=== PATIENT | male | born 2000 | race Caucasian/White ===

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

== ENCOUNTER 2021-10-07 16:57 | Emergency (ER) | payer OTHER ==
[~2021-10-07] VITALS: Ht 185.5 cm; Wt 134.7 kg
[~2021-10-07 16:57] MED LIST changes: +METF-397 PO; -METF500T5 PO; +ONDA4TAB11 PO
[2021-10-07 17:14] VITALS: BP 142/92
--- NOTE | 2021-10-07 18:06 | ED Abdominal Pain ---
General Chief Complaint: Abdominal/GI Problems Stated Complaint: ABD PAIN Nursing Triage Note: PT AMB TO ED BY POV WITH C/O UPPER ABD PAIN. PT REPORTS HE THINKS HE JUST HAS GAS. PAIN BEGAN APPROX NOON TODAY, PT TOOK GAS X AT 1400 WITH SOME RELIEF, BUT PAIN RETURNED. DENIES N/V/D, FEVER, CP, SOB, OR ANY OTHER SX. Source of Information: Patient Exam Limitations: No Limitations History of Present Illness Date Seen by Provider: Oct 07, 2021 Time Seen by Provider: 17:51 Allergies and Home Medications Allergies Coded Allergies: No Known Drug Allergies (Unverified , 02/12/13) Patient Home Medication List Ondansetron (Ondansetron Odt) 4 Mg Tab.rapdis, 4 MG PO Q6H PRN for NAUSEA/VOMITING Prescribed by: VIKTOR MALONE on 07/20/172047 Past Lqsejqx-Mumikm-Pcavoo Hx Immunizations Up To Date Tetanus Booster (TDap): Less than 5yrs PED Vaccines UTD: Yes Seasonal Allergies Seasonal Allergies: No Past Medical History Surgeries: Yes (TUBES IN EARS, PYLONIDAL CYST) Respiratory: No Cardiac: No Neurological: No Genitourinary: No Gastrointestinal: Yes Gall Bladder Disease Musculoskeletal: No Endocrine: Yes (suppose to be on metformin) Diabetes, Non-Insulin dep HEENT: No Cancer: No Psychosocial: No Integumentary: No Blood Disorders: No Adverse Reaction/Blood Tranf: No Family Medical History No Pertinent Family Hx Physical Exam Vital Signs Vital Signs - First Documented 10/07/21 17:14 Temp 36.7 Pulse 102 Resp 18 B/P (MAP) 142/92 (109) Pulse Ox 97 O2 Delivery Room Air Capillary Refill : Less Than 3 Seconds Height/Weight/BMI Height: 6'0" Weight: 250lbs. 0oz. 113.291986sj; 39.00 BMI Method:Stated Progress/Results/Core Measures Results/Orders My Orders Orders - MARIO MCKEON APRN Ekg Tracing (10/07/21 17:49) Vital Signs/I&O 10/07/21 17:14 Temp 36.7 Pulse 102 Resp 18 B/P (MAP) 142/92 (109) Pulse Ox 97 O2 Delivery Room Air Blood Pressure Mean: 109 Departure Impression Primary Impression: Gas pain Disposition: 01 HOME, SELF-CARE Condition: Improved Departure-Patient Inst. Decision time for Depature: 18:05 Referrals: NO,LOCAL PHYSICIAN (PCP/Family) Primary Care Physician Patient Instructions: Gas and Bloating Add. Discharge Instructions: Plan 1. Follow up with your doctor for additional workup with your gallbladder. 2. If you feel you are bloated or having trapped gas you can walk around to help remove. 3. May take Simethicone tablet as needed per package. 5. Return for any new, concerning, or worsening symptoms. All discharge instructions reviewed with patient and/or family. Voiced understanding. MARIO MCKEON SURVEY WORKER Oct 07, 2021 18:06
== END 2021-10-07 18:14 | disposition home or self-care (01) ==
LOC: EDUNIT# 16:57 → ER 17:00
DX: R14.0 Abdominal distension (gaseous) (principal); Z28.310 Unvaccinated for COVID-19
CPT/HCPCS: 93005

== ENCOUNTER 2021-11-03 19:52 | Emergency (ER) | payer MEDICAID, OTHER ==
[~2021-11-03] VITALS: Ht 182 cm; Wt 129.0 kg
[2021-11-03] MEDS ORDERED: morphine INJ 10 MG/ML 1ML (SYR OR VIAL) IVP STA (20:17)
[2021-11-03 20:22] LABS: BILIRUBIN,URINE NEGATIVE (NEGATIVE); CLARITY,URINE CLEAR; COLOR,URINE YELLOW; GLUCOSE, URINE (UA) NEGATIVE (NEGATIVE); KETONES,URINE TRACE (NEGATIVE); LEUKOCYTE ESTERASE ,URINE NEGATIVE (NEGATIVE); NITRITE,URINE NEGATIVE (NEGATIVE); PH,URINE 6.5 (5-9); PROTEIN,URINE NEGATIVE (NEGATIVE)
--- NOTE | 2021-11-03 20:29 | ED Abdominal Pain ---
General Chief Complaint: Abdominal/GI Problems Stated Complaint: ABD PAIN Nursing Triage Note: Patient presented to the ER tonight with complaints of abdominal pain located in the left and right upper quadrant that radiates down into the right lower quadrant. Patient state bowel movement x 1 hr ago that was normal. States bloating and pain with palpation. He advised he was seen at the ER approximately 1 week ago for a similar pain but was unable to have an ultrasound done at that time. History of Present Illness Date Seen by Provider: Nov 03, 2021 Time Seen by Provider: 20:20 Initial Comments Patient is a 21 yo M who presents to the ED with upper abdominal pain that began earlier today. He states the symptoms began after eating barbeque chicken. He states he has had two similar episodes in the past. He was evaluated in this ED for the initial symptoms. Patient denies any N/V/D. No fever. No recent abdominal trauma. No urinary symptoms. No abdominal surgeries in the past. Patient states he took some Gas-x for the symptoms with no improvement. He is on GERD medication daily. Allergies and Home Medications Allergies Coded Allergies: No Known Drug Allergies (Unverified , 02/12/13) Patient Home Medication List Home Medication List Reviewed: Yes Ketorolac Tromethamine (Ketorolac Tromethamine) 10 Mg Tablet, 10 MG PO Q6H PRN for pain Prescribed by: Mc Meneses on 11/03/212128 Ondansetron (Ondansetron Odt) 4 Mg Tab.rapdis, 4 MG PO Q6H PRN for NAUSEA/VOMITING Prescribed by: VIKTOR MALONE on 07/20/172047 Review of Systems Review of Systems Constitutional: no symptoms reported EENTM: No Symptoms Reported Respiratory: No Symptoms Reported Cardiovascular: No Symptoms Reported Gastrointestinal: No Symptoms Reported Genitourinary: No Symptoms Reported Musculoskeletal: no symptoms reported Skin: no symptoms reported Psychiatric/Neurological: No Symptoms Reported Past Qcznpos-Cguejd-Fiiymw Hx Immunizations Up To Date Tetanus Booster (TDap): Less than 5yrs PED Vaccines UTD: Yes First/Initial COVID19 Vaccinat: N/A Seasonal Allergies Seasonal Allergies: No Past Medical History Surgery/Hospitalization HX: ACID REFLUX Surgeries: Yes (TUBES IN EARS, PYLONIDAL CYST) Respiratory: No Cardiac: No Neurological: No Genitourinary: No Gastrointestinal: Yes Gall Bladder Disease Musculoskeletal: No Endocrine: Yes (suppose to be on metformin) Diabetes, Non-Insulin dep HEENT: No Cancer: No Psychosocial: No Integumentary: No Blood Disorders: No Adverse Reaction/Blood Tranf: No Family Medical History No Pertinent Family Hx Physical Exam Vital Signs Vital Signs - First Documented 11/03/21 20:10 Pulse 108 Resp 18 B/P (MAP) 142/73 (96) Pulse Ox 98 O2 Delivery Room Air Capillary Refill : Less Than 3 Seconds Height/Weight/BMI Height: 6'0" Weight: 250lbs. 0oz. 113.839193dq; 38.00 BMI Method:Stated General Appearance: WD/WN, no apparent distress HEENT: PERRL/EOMI, normal ENT inspection, TMs normal, pharynx normal Neck: non-tender, full range of motion, supple, normal inspection Respiratory: chest non-tender, lungs clear, normal breath sounds, no respiratory distress, no accessory muscle use Cardiovascular: normal peripheral pulses, regular rate, rhythm, no edema, no gallop, no JVD, no murmur Gastrointestinal: normal bowel sounds, soft, no organomegaly, no pulsatile mass; No abnormal bowel sounds, No distended, No guarding, No rebound; tenderness Extremities: normal range of motion, non-tender, normal inspection, no pedal edema, no calf tenderness, normal capillary refill 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, no motor/sensory deficits, alert, normal mood/affect, oriented x 3 Skin: normal color, warm/dry Progress/Results/Core Measures Results/Orders Lab Results Laboratory Tests Test 11/03/21 20:16 11/03/21 20:31 Range/Units Urine Color YELLOW Urine Clarity CLEAR Urine pH 6.5 5-9 Urine Specific [place] 1.025 H 1.016-1.022 Urine Protein NEGATIVE NEGATIVE Urine Glucose (UA) NEGATIVE NEGATIVE Urine Ketones TRACE H NEGATIVE Urine Nitrite NEGATIVE NEGATIVE Urine Bilirubin NEGATIVE NEGATIVE Urine Urobilinogen 0.2 < = 1.0 MG/DL Urine Leukocyte Esterase NEGATIVE NEGATIVE Urine RBC (Auto) TRACE-I H NEGATIVE Urine RBC RARE /HPF Urine WBC NONE /HPF Urine Crystals NONE /LPF Urine Bacteria NEGATIVE /HPF Urine Casts NONE /LPF Urine Mucus NEGATIVE /LPF Urine Culture Indicated NO White Blood Count 14.4 H 4.3-11.0 10^3/uL Red Blood Count 4.73 4.30-5.52 10^6/uL Hemoglobin 14.6 13.3-17.7 g/dL Hematocrit 43 40-54 % Mean Corpuscular Volume 90 80-99 fL Mean Corpuscular Hemoglobin 31 25-34 pg Mean Corpuscular Hemoglobin Concent 34 32-36 g/dL Red Cell Distribution Width 12.4 10.0-14.5 % Platelet Count 301 130-400 10^3/uL Mean Platelet Volume 9.2 9.0-12.2 fL Immature Granulocyte % (Auto) 0 % Neutrophils (%) (Auto) 65 42-75 % Lymphocytes (%) (Auto) 30 12-44 % Monocytes (%) (Auto) 5 0-12 % Eosinophils (%) (Auto) 0 0-10 % Basophils (%) (Auto) 0 0-10 % Neutrophils # (Auto) 9.3 H 1.8-7.8 10^3/uL Lymphocytes # (Auto) 4.3 H 1.0-4.0 10^3/uL Monocytes # (Auto) 0.7 0.0-1.0 10^3/uL Eosinophils # (Auto) 0.0 0.0-0.3 10^3/uL Basophils # (Auto) 0.0 0.0-0.1 10^3/uL Immature Granulocyte # (Auto) 0.0 0.0-0.1 10^3/uL Neutrophils % (Manual) 66 % Lymphocytes % (Manual) 28 % Monocytes % (Manual) 6 % Blood Morphology Comment NORMAL Sodium Level 141 135-145 MMOL/L Potassium Level 3.8 3.6-5.0 MMOL/L Chloride Level 104 98-107 MMOL/L Carbon Dioxide Level 24 21-32 MMOL/L Anion Gap 13 5-14 MMOL/L Blood Urea Nitrogen 12 7-18 MG/DL Creatinine 1.07 0.60-1.30 MG/DL Estimat Glomerular Filtration Rate 101 BUN/Creatinine Ratio 11 Glucose Level 92 70-105 MG/DL Calcium Level 9.8 8.5-10.1 MG/DL Corrected Calcium 9.4 8.5-10.1 MG/DL Total Bilirubin 0.5 0.1-1.0 MG/DL Aspartate Amino Transf (AST/SGOT) 33 5-34 U/L Alanine Aminotransferase (ALT/SGPT) 72 H 0-55 U/L Alkaline Phosphatase 78 40-136 U/L Total Protein 8.2 6.4-8.2 GM/DL Albumin 4.5 3.2-4.5 GM/DL Lipase 17 8-78 U/L My Orders Orders - MC MENESES RAIL SIGNAL WORKER Cbc With Automated Diff (11/03/21 20:12) Comprehensive Metabolic Panel (11/03/21 20:12) Lipase (11/03/21 20:12) Ed Iv/Invasive Line Start (11/03/21 20:12) Urinalysis (11/03/21 20:12) Ct Abdomen/Pelvis W (11/03/21 20:15) Morphine Injection (Morphine Injection (11/03/21 20:17) Iohexol Injection (Omnipaque 350 Mg/Ml 1 (11/03/21 20:30) Received Contrast (Hold Metformin- Contr (11/03/21 20:30) Ns (Ivpb) (Sodium Chloride 0.9% Ivpb Bag (11/03/21 20:30) Manual Differential (11/03/21 20:31) Ketorolac Injection (Toradol Injection) (11/03/21 21:30) Medications Given in ED Current Medications Medications Dose Ordered Sig/Conrad Route Start Time Stop Time Status Last Admin Dose Admin Iohexol 100 ml ONCE ONCE IV 11/03/21 20:30 11/03/21 20:31 DC 11/03/21 21:00 100 ML Ketorolac Tromethamine 15 mg ONCE ONCE IVP 11/03/21 21:30 11/03/21 21:31 DC 11/03/21 21:51 15 MG Sodium Chloride 100 ml ONCE ONCE IV 11/03/21 20:30 11/03/21 20:31 DC 11/03/21 21:00 80 ML Vital Signs/I&O 11/03/21 11/03/21 20:10 21:52 Pulse 108 85 Resp 18 B/P (MAP) 142/73 (96) 138/77 Pulse Ox 98 97 O2 Delivery Room Air Blood Pressure Mean: 96 Progress Progress Note : Progress Note Patient is nontoxic and well hydrated on exam. Vital signs are reassuring. Exam is c/w biliary colic as there is RUQ TTP. Abdomen is not rigid or distended. Laboratory evaluation is reassuring. No elevated in LFTs, bilirubin, or lipase on metabolic panels. CBC unremarkable. CT of the abd/pelvis notable for gallbladder distention and cholelithiasis. No evidence of acute cholecystitis, choledocholithiasis, or cholangitis. Will d/c home with recs for supportive care and follow-up with general surgery in the near future. Return precautions for urgent symptomology discussed. Patient verbalized understanding. Departure Impression Primary Impression: Biliary colic Disposition: HOME, SELF-CARE Condition: Improved Departure-Patient Inst. Decision time for Depature: 21:25 [place]: [facility] [place] Primary Care Physician Patient Instructions: Gallstones ED Scripts Ketorolac Tromethamine (Ketorolac Tromethamine) 10 Mg Tablet 10 MG PO Q6H PRN for pain for 5 Days, #15 TAB Prov: MC MENESES APRN 11/03/21 MC MENESES APRN Nov 03, 2021 20:29
[2021-11-03] MEDS ORDERED: NS 100 ML (IVPB) BAG IV ONE (20:30)
[2021-11-03] MEDS ORDERED: IOHEXOL 350 MG/ML 100 ML (OMNIPAQUE 350) VIAL IV ONE (20:30)
[2021-11-03] MEDS ORDERED: HOLD METFORMIN - RECEIVED CONTRAST 20 ML VIAL IV SCH (20:30)
[2021-11-03 20:31] LABS: BACTERIA,URINE NEGATIVE /HPF; RBC,URINE RARE /HPF
[2021-11-03 20:37] LABS: BASOPHILS % (AUTO) 0 % (0-10); EOSINOPHILS % (AUTO) 0 % (0-10); HEMATOCRIT 43 % (40-54); HEMOGLOBIN 14.6 g/dL (13.3-17.7); LYMPHOCYTES # (AUTO) 4.3 10^3/uL (1.0-4.0); LYMPHOCYTES % (AUTO) 30 % (12-44); MEAN CORPUSCULAR HEMOGLOBIN 31 pg (25-34); MEAN CORPUSCULAR HGB CONC 34 g/dL (32-36); MEAN CORPUSCULAR VOLUME 90 fL (80-99); MEAN PLATELET VOLUME 9.2 fL (9.0-12.2); MONOCYTES # (AUTO) 0.7 10^3/uL (0.0-1.0); MONOCYTES % (AUTO) 5 % (0-12); NEUTROPHILS # (AUTO) 9.3 10^3/uL (1.8-7.8); NEUTROPHILS % (AUTO) 65 % (42-75); PLATELET COUNT 301 10^3/uL (130-400); WHITE BLOOD COUNT 14.4 10^3/uL (4.3-11.0)
[2021-11-03 20:45] LABS: ALBUMIN 4.5 GM/DL (3.2-4.5); POTASSIUM 3.8 MMOL/L (3.6-5.0)
[2021-11-03 20:46] LABS: CALCIUM 9.8 MG/DL (8.5-10.1)
[2021-11-03 20:48] LABS: TOTAL PROTEIN 8.2 GM/DL (6.4-8.2)
[2021-11-03 20:49] LABS: BILIRUBIN,TOTAL 0.5 MG/DL (0.1-1.0)
[2021-11-03 20:51] LABS: CREATININE SERUM 1.07 MG/DL (0.60-1.30); LYMPHOCYTES % (MANUAL) 28 %; MONOCYTES % (MANUAL) 6 %; NEUTROPHILS % (MANUAL) 66 %; RBC MORPH NORMAL
--- NOTE | 2021-11-03 21:05 | Diagnostic Imaging Report ---
EXAMINATION: CT abdomen and pelvis with intravenous contrast. TECHNIQUE: Multiple contiguous axial images were obtained through the abdomen and pelvis after the uneventful administration of intravenous contrast. All CT scans use one or more of the following dose optimizing techniques: automated exposure control, MA and/or KvP adjustment based on patient size and exam type or iterative reconstruction. HISTORY: Upper abdominal pain. COMPARISON: 04/11/2017. FINDINGS: The heart is unremarkable. The included lung bases are clear. Cholelithiasis is visualized in a mildly distended gallbladder. Bilateral nonobstructing renal calculi are seen. No obstructing calculi or hydronephrosis. No perinephric fat stranding. No solid renal mass. The urinary bladder is unremarkable. The liver, spleen, pancreas and adrenal glands have a normal appearance. There is no pathologically enlarged mesenteric or retroperitoneal adenopathy. The bowel loops are nondilated. The appendix is visualized in the right lower quadrant and has a normal appearance. There is no free fluid or free air. No acute osseous abnormality. There is no free air, loculated collection or adenopathy in the pelvis. IMPRESSION: 1. Cholelithiasis with a moderately distended gallbladder. Recommend correlation with patient symptoms and, if indicated, liver/gallbladder ultrasound to further evaluate. 2. Bilateral nonobstructing renal calculi. No evidence of obstructing calculi or hydronephrosis. Dictated by: Dictated on workstation # [id number]
[2021-11-03] MEDS ORDERED: KETO10TA PO (21:29)
[2021-11-03] MEDS ORDERED: KETOROLAC 30 MG/ML VIAL IVP ONE (21:30)
[2021-11-03 21:52] VITALS: BP 138/77
== END 2021-11-03 21:57 | disposition home or self-care (01) ==
LOC: EDUNIT# 19:52 → ER 19:55
DX: K80.50 Calculus of bile duct without cholangitis or cholecystitis without obstruction (principal); K21.9 Gastro-esophageal reflux disease without esophagitis; Z79.899 Other long term (current) drug therapy; Z28.310 Unvaccinated for COVID-19
CPT/HCPCS: 36415; 74177; 80053; 81000; 83690; 85007; 85027

== ENCOUNTER 2021-11-15 05:30 | Outpatient (CLI) | payer MEDICAID ==
[~2021-11-15] VITALS: Ht 182.8 cm; Wt 129.3 kg
[~2021-11-15 05:30] MED LIST changes: +KETO10TA PO
== END 2021-11-15 14:35 | disposition home or self-care (01) ==
LOC: PREOP 05:30
PROVIDERS: ATTEND Surgery
DX: Z01.818 Encounter for other preprocedural examination (principal)

== ENCOUNTER 2021-11-21 00:21 | Emergency (ER) | payer MEDICAID ==
[2021-11-21 00:49] LABS: BILIRUBIN,URINE NEGATIVE (NEGATIVE); CLARITY,URINE SL CLOUDY; COLOR,URINE BROWN; GLUCOSE, URINE (UA) NEGATIVE (NEGATIVE); KETONES,URINE TRACE (NEGATIVE); LEUKOCYTE ESTERASE ,URINE TRACE (NEGATIVE); NITRITE,URINE POSITIVE (NEGATIVE); PROTEIN,URINE 2+ (NEGATIVE)
[2021-11-21] MEDS ORDERED: KETOROLAC 30 MG/ML VIAL IVP STA (00:50)
[2021-11-21 00:59] LABS: BASOPHILS % (AUTO) 0 % (0-10); EOSINOPHILS # (AUTO) 0.1 10^3/uL (0.0-0.3); EOSINOPHILS % (AUTO) 1 % (0-10); HEMATOCRIT 45 % (40-54); LYMPHOCYTES # (AUTO) 4.2 10^3/uL (1.0-4.0); LYMPHOCYTES % (AUTO) 35 % (12-44); MEAN CORPUSCULAR HEMOGLOBIN 31 pg (25-34); MEAN CORPUSCULAR HGB CONC 34 g/dL (32-36); MEAN CORPUSCULAR VOLUME 91 fL (80-99); MEAN PLATELET VOLUME 9.6 fL (9.0-12.2); MONOCYTES # (AUTO) 0.7 10^3/uL (0.0-1.0); MONOCYTES % (AUTO) 6 % (0-12); NEUTROPHILS # (AUTO) 6.9 10^3/uL (1.8-7.8); NEUTROPHILS % (AUTO) 58 % (42-75); PLATELET COUNT 323 10^3/uL (130-400); WHITE BLOOD COUNT 11.8 10^3/uL (4.3-11.0)
[2021-11-21] MEDS ORDERED: LACTATED RINGERS 1,000 ML IV ONE (01:00)
[2021-11-21 01:09] LABS: AMPHETAMINE SCREEN, URINE NEGATIVE (NEGATIVE); BARBITURATE SCREEN URINE NEGATIVE (NEGATIVE); BENZODIAZEPINES SCREEN URINE NEGATIVE (NEGATIVE); CANNABINOID SCREEN, URINE NEGATIVE (NEGATIVE); COCAINE SCREEN URINE NEGATIVE (NEGATIVE); METHADONE STAT NEGATIVE (NEGATIVE); OPIATE SCREEN URINE NEGATIVE (NEGATIVE); OXYCODONE STAT NEGATIVE (NEGATIVE); PROPOXYPHENE STAT NEGATIVE (NEGATIVE); TRICYCLIC ANTIDEPRESSANTS SCRE NEGATIVE (NEGATIVE)
[2021-11-21 01:10] LABS: BACTERIA,URINE LARGE /HPF; CALCIUM OXALATE CRYSTALS,UR LARGE /LPF; RBC,URINE TNTC /HPF
[2021-11-21 01:14] LABS: ALBUMIN 4.5 GM/DL (3.2-4.5); POTASSIUM 3.5 MMOL/L (3.6-5.0)
[2021-11-21 01:15] LABS: CALCIUM 9.7 MG/DL (8.5-10.1)
[2021-11-21 01:17] LABS: TOTAL PROTEIN 8.2 GM/DL (6.4-8.2)
[2021-11-21 01:18] LABS: BILIRUBIN,TOTAL 0.4 MG/DL (0.1-1.0)
[2021-11-21] MEDS ORDERED: cefTRIAXone 1 GM PRE-MIX 50 ML IV ONE (01:30)
--- NOTE | 2021-11-21 01:40 | ED GU-Male ---
General Chief Complaint: - Reproductive Stated Complaint: SHARP BACK PAIN RT SIDE Nursing Triage Note: PT AMB TO [facility] 6 WITH C/O SHARP BACK PAIN ON THE RIGHT SIDE. PT STATES IT WOKE HIM UP FROM SLEEP. PT DENIES HX OF KIDNEY STONES AND DENIES TAKING ANYTHING FOR PAIN Source: patient History of Present Illness Date Seen by Provider: Nov 21, 2021 Time Seen by Provider: 00:43 Initial Comments PT ARRIVES VIA POV FROM HOME PT STATES THAT ABOUT AN HOUR AGO, HE GOT UP TO URINATE, AND SHORTLY AFTER THAT, HE BEGAN HAVING SHARP SEVERE PAIN IN HIS RIGHT LOWER BACK/FLANK AREA NO PAIN ON URINATION, BUT HAS BEEN HAVING SOME URGENCY, FREQUENCY AND SMALL AMOUNTS FOR THE LAST HOUR JUST PRIOR TO ARRIVAL, HE HAD BLOOD IN HIS URINE, SO HE CAME HERE NO FEVER NO NAUSEA/VOMITING HE STATES THAT FOR THE LAST COUPLE OF DAYS HE HAS HAD SOME "LITTLE 5 SECOND PAINS" IN THIS SAME AREA PT HAS NOT TAKEN ANYTHING FOR PAIN PT WAS RECENTLY DX WITH GALLSTONES AND IS SCHEDULED TO HAVE HIS GALLBLADDER REMOVED TOMORROW BY DR. BRYAN. Allergies and Home Medications Allergies Coded Allergies: No Known Drug Allergies (Unverified , 11/15/21) Patient Home Medication List Home Medication List Reviewed: Yes Ciprofloxacin HCl (Ciprofloxacin HCl) 500 Mg Tablet, 500 MG PO BID Prescribed by: NAVYA CORONA on 11/21/21245 Hydrocodone/Acetaminophen (Hydrocodone-Acetamin 5-325 mg) 5 Mg-325 Mg Tablet, 1 EACH PO Q4-6 HOURS PRN for PAIN Prescribed by: NAVYA CORONA on 11/21/21246 Ketorolac Tromethamine (Ketorolac Tromethamine) 10 Mg Tablet, 10 MG PO Q6H PRN for pain Prescribed by: Mc Meneses on 11/03/212128 Ondansetron (Ondansetron Odt) 4 Mg Tab.rapdis, 4 MG PO Q6H PRN for NAUSE A/VOMITING Prescribed by: VIKTOR MALONE on 07/20/172047 Ondansetron (Ondansetron Odt) 8 Mg Tab.rapdis, 8 MG PO Q6H Prescribed by: NAVYA CORONA on 11/21/21245 Tamsulosin HCl (Flomax) 0.4 Mg Cap, 0.4 MG PO DAILY Prescribed by: NAVYA CORONA on 11/21/21245 Review of Systems Review of Systems Constitutional: no symptoms reported Respiratory: no symptoms reported Cardiovascular: no symptoms reported Gastrointestinal: see HPI Genitourinary: see HPI Musculoskeletal: see HPI Skin: no symptoms reported Psychiatric/Neurological: No Symptoms Reported Endocrine: No Symptoms Reported Hematologic/Lymphatic: No Symptoms Reported Past Ekqilzw-Xsofml-Eijdgj Hx Patient Social History Tobacco Use?: No Substance use?: No Alcohol Use?: Yes Alcohol Frequency: Rarely Pt feels they are or have been: No Immunizations Up To Date Tetanus Booster (TDap): Less than 5yrs PED Vaccines UTD: Yes Influenza Vaccine Up-to-Date: No; Not Current First/Initial COVID19 Vaccinat: N/A Second COVID19 Vaccination Matt: N/A Third COVID19 Vaccination Date: N/A Seasonal Allergies Seasonal Allergies: Yes Past Medical History Surgery/Hospitalization HX: ACID REFLUX Surgeries: Yes (TUBES IN EARS, PILONIDAL CYST) Ear Surgery Respiratory: No Cardiac: No Neurological: No Genitourinary: No Gastrointestinal: Yes Gall Bladder Disease Musculoskeletal: No Endocrine: Yes (suppose to be on metformin PRE-GETS TOO LOW) Diabetes, Non-Insulin dep HEENT: No Cancer: No Psychosocial: Yes Anxiety Integumentary: No Blood Disorders: No Adverse Reaction/Blood Tranf: No Family Medical History No Pertinent Family Hx Physical Exam Vital Signs Vital Signs - First Documented 11/21/21 00:30 Temp 36.4 Pulse 88 Resp 16 B/P (MAP) 151/92 (111) Capillary Refill : Height, Weight, BMI Height: 6'0" Weight: 250lbs. 0oz. [id number]; 38.69 BMI Method:Stated General Appearance: WD/WN, no apparent distress Neck: normal inspection Cardiovascular: regular rate, rhythm Respiratory: normal breath sounds Gastrointestinal: soft; No distended, No guarding, No rebound; tenderness (SUPRAPUBIC, RLQ AND RIGHT FLANK TENDERNESS. ); No hernia, No mass Back: CVA tenderness (R) Extremities: normal inspection Neurologic/Psychiatric: delivery rn II-XII nml as tested, no motor/sensory deficits, alert, normal mood/affect, oriented x 3 Skin: normal color, warm/dry; No rash; tattoos/piercings Progress/Results/Core Measures Suspected Sepsis SIRS Temperature: Pulse: 88 Respiratory Rate: 16 Laboratory Tests 11/21/21 00:45: White Blood Count 11.8H Blood Pressure 151 /92 Mean: 111 Laboratory Tests 11/21/21 00:45: Creatinine 1.00, Platelet Count 323, Total Bilirubin 0.4 Results/Orders Lab Results Laboratory Tests Test 11/21/21 00:33 11/21/21 00:45 Range/Units Urine Color BROWN H Urine Clarity SL CLOUDY Urine pH 5.0 5-9 Urine Specific [place] >=1.030 1.016-1.022 Urine Protein 2+ H NEGATIVE Urine Glucose (UA) NEGATIVE NEGATIVE Urine Ketones TRACE H NEGATIVE Urine Nitrite POSITIVE H NEGATIVE Urine Bilirubin NEGATIVE NEGATIVE Urine Urobilinogen 1.0 < = 1.0 MG/DL Urine Leukocyte Esterase TRACE H NEGATIVE Urine RBC (Auto) 3+ H NEGATIVE Urine RBC TNTC H /HPF Urine WBC 10-25 H /HPF Urine Crystals PRESENT H /LPF Urine Calcium Oxalate Crystals LARGE H /LPF Urine Bacteria LARGE H /HPF Urine Casts NONE /LPF Urine Mucus LARGE H /LPF Urine Culture Indicated YES Urine Opiates Screen NEGATIVE NEGATIVE Urine Oxycodone Screen NEGATIVE NEGATIVE Urine Methadone Screen NEGATIVE NEGATIVE Urine Propoxyphene Screen NEGATIVE NEGATIVE Urine Barbiturates Screen NEGATIVE NEGATIVE Ur Tricyclic Antidepressants Screen NEGATIVE NEGATIVE Urine Phencyclidine Screen NEGATIVE NEGATIVE Urine Amphetamines Screen NEGATIVE NEGATIVE Urine Methamphetamines Screen NEGATIVE NEGATIVE Urine Benzodiazepines Screen NEGATIVE NEGATIVE Urine Cocaine Screen NEGATIVE NEGATIVE Urine Cannabinoids Screen NEGATIVE NEGATIVE White Blood Count 11.8 H 4.3-11.0 10^3/uL Red Blood Count 4.89 4.30-5.52 10^6/uL Hemoglobin 15.0 13.3-17.7 g/dL Hematocrit 45 40-54 % Mean Corpuscular Volume 91 80-99 fL Mean Corpuscular Hemoglobin 31 25-34 pg Mean Corpuscular Hemoglobin Concent 34 32-36 g/dL Red Cell Distribution Width 12.3 10.0-14.5 % Platelet Count 323 130-400 10^3/uL Mean Platelet Volume 9.6 9.0-12.2 fL Immature Granulocyte % (Auto) 0 % Neutrophils (%) (Auto) 58 42-75 % Lymphocytes (%) (Auto) 35 12-44 % Monocytes (%) (Auto) 6 0-12 % Eosinophils (%) (Auto) 1 0-10 % Basophils (%) (Auto) 0 0-10 % Neutrophils # (Auto) 6.9 1.8-7.8 10^3/uL Lymphocytes # (Auto) 4.2 H 1.0-4.0 10^3/uL Monocytes # (Auto) 0.7 0.0-1.0 10^3/uL Eosinophils # (Auto) 0.1 0.0-0.3 10^3/uL Basophils # (Auto) 0.0 0.0-0.1 10^3/uL Immature Granulocyte # (Auto) 0.0 0.0-0.1 10^3/uL Sodium Level 140 135-145 MMOL/L Potassium Level 3.5 L 3.6-5.0 MMOL/L Chloride Level 103 98-107 MMOL/L Carbon Dioxide Level 26 21-32 MMOL/L Anion Gap 11 5-14 MMOL/L Blood Urea Nitrogen 11 7-18 MG/DL Creatinine 1.00 0.60-1.30 MG/DL Estimat Glomerular Filtration Rate 109 BUN/Creatinine Ratio 11 Glucose Level 127 H 70-105 MG/DL Calcium Level 9.7 8.5-10.1 MG/DL Corrected Calcium 9.3 8.5-10.1 MG/DL Total Bilirubin 0.4 0.1-1.0 MG/DL Aspartate Amino Transf (AST/SGOT) 26 5-34 U/L Alanine Aminotransferase (ALT/SGPT) 57 H 0-55 U/L Alkaline Phosphatase 89 40-136 U/L Total Protein 8.2 6.4-8.2 GM/DL Albumin 4.5 3.2-4.5 GM/DL Amylase Level 28 25-125 U/L Lipase 22 8-78 U/L My Orders Orders - NAVYA CORONA DO Drug Screen Stat (Urine) (11/21/21 00:43) Ua Culture If Indicated (11/21/21 00:43) Ed Iv/Invasive Line Start (11/21/21 00:50) Ct Abd/Pelvis Wo(Kidney Stone) (11/21/21 00:50) Amylase (11/21/21 00:50) Cbc With Automated Diff (11/21/21 00:50) Comprehensive Metabolic Panel (11/21/21 00:50) Lipase (11/21/21 00:50) Abdomen/Kub 1view (11/21/21 00:50) Ed Iv/Invasive Line Start (11/21/21 00:50) Lactated Ringers (Lr 1000 Ml Iv Solution (11/21/21 01:00) Ketorolac Injection (Toradol Injection) (11/21/21 00:50) Urine Culture (11/21/21 00:33) Ceftriaxone 1 Gm Pre-Mix (Rocephin 1 Gm (11/21/21 01:30) Rx-Hydrocodone/Apap 5-325 Mg (Rx-Vicodin (11/21/21 03:00) Rx-Ondansetron Po (Rx-Zofran Po) (11/21/21 02:47) Tamsulosin Capsule (Flomax Capsule) (11/21/21 03:00) Medications Given in ED Current Medications Medications Dose Ordered Sig/Conrad Route Start Time Stop Time Status Last Admin Dose Admin Ceftriaxone Sodium/Dextrose 50 ml @ 100 mls/hr ONCE ONCE IV 11/21/21 01:30 11/21/21 01:59 DC 11/21/21 02:11 100 MLS/HR Lactated Ringer's 1,000 ml @ 0 mls/hr Q0M ONCE IV 11/21/21 01:00 11/21/21 01:01 DC 11/21/21 00:56 1,000 MLS/HR Vital Signs/I&O 11/21/21 00:30 Temp 36.4 Pulse 88 Resp 16 B/P (MAP) 151/92 (111) Capillary Refill : Blood Pressure Mean: 111 Progress Note : Progress Note GIVEN TORADOL WITH COMPLETE RELIEF OF PAIN Diagnostic Imaging Comments KUB--CALCIFICATION IN RIGHT MID ABDOMEN, PENDING RADIOLOGIST REVIEW CT ABDOMEN/PELVIS--PER [facility] VIA FAX AT 0233 -3.8 MM RIGHT PROXIMAL URETERAL CALCULUS WITH MILD HYDRONEPHROSIS -CHOLELITHIASIS WITHOUT ACUTE CHOLECYSTITIS. Reviewed: Reviewed by Me Departure Communication (Admissions) 0233--SPOKE WITH DR. BRYAN, SURGEON, HE ADVISES TO SEND PT HOME, CONTINUE WITH SURGERY TOMORROW PLANNED AND FOLLOW UP WITH DR. AVILA OUTPATIENT NEXT WEEK, HE IS OUT OF TOWN THIS WEEK. Impression Primary Impression: Right ureteral calculus Additional Impressions: UTI (urinary tract infection) Cholelithiasis Disposition: HOME, SELF-CARE Condition: Improved Departure-Patient Inst. Decision time for Depature: 02:35 Referrals: [facility] (PCP/Family) Primary Care Physician Patient Instructions: Urinary Tract Infection, Adult (DC), Kidney Stone, Adult ED, Gallstones (DC) Add. Discharge Instructions: LOTS OF CLEAR LIQUIDS STRAIN ALL URINE--RETURN ANY STONES TO DR. AVILA'S OFFICE CONTINUE YOUR CURRENT MEDICATIONS PRESCRIBED CONTINUE PLANNED SURGERY FOR GALLBLADDER REMOVAL TOMORROW WITH DR. BRYAN FOLLOW UP WITH DR. AVILA, UROLOGIST, FOR FURTHER EVALUATION OF KIDNEY STONE RETURN TO ER IF SYMPTOMS WORSEN All discharge instructions reviewed with patient and/or family. Voiced understanding. Scripts Hydrocodone/Acetaminophen (Hydrocodone-Acetamin 5-325 mg) 5 Mg-325 Mg Tablet 1 EACH PO Q4-6 HOURS PRN for PAIN, #20 TAB Prov: NAVYA CORONA DO 11/21/21 Ondansetron (Ondansetron Odt) 8 Mg Tab.rapdis 8 MG PO Q6H, #10 TAB Prov: NAVYA COROAN DO 11/21/21 Tamsulosin HCl (Flomax) 0.4 Mg Cap 0.4 MG PO DAILY, #10 CAP Prov: NAVYA CORONA DO 11/21/21 Ciprofloxacin HCl (Ciprofloxacin HCl) 500 Mg Tablet 500 MG PO BID, #14 TAB Prov: NAVYA CORONA DO 11/21/21 Work/School Note: Work Release Form Date Seen in the Emergency Department: Nov 21, 2021 Restrictions: Need Release from Doctor NAVYA CORONA DO Nov 21, 2021 01:40
[2021-11-21] MEDS ORDERED: TMSL.4C PO (02:46)
[2021-11-21] MEDS ORDERED: CIPR500T5 PO (02:46)
[2021-11-21] MEDS ORDERED: ONDA8TAB13 PO (02:46)
[2021-11-21] MEDS ORDERED: ACHD5005 PO (02:46)
[2021-11-21] MEDS ORDERED: RX-ONDANSETRON 4 MG ODT (ZOFRAN) PPK #4 PO STA (02:47)
[2021-11-21] MEDS ORDERED: TAMSULOSIN 0.4 MG (FLOMAX) CAP PO SCH (03:00)
[2021-11-21 03:24] VITALS: BP 132/78
--- NOTE | 2021-11-21 06:40 | Diagnostic Imaging Report ---
Indication: Right flank pain. TECHNIQUE: Multiple contiguous axial images were obtained through the abdomen and pelvis without the use of intravenous contrast. Auto Exposure Controls were utilized during the CT exam to meet ALARA standards for radiation dose reduction. COMPARISON: 11/03/2021 Visualized portions of the lung bases are clear. There were no pleural fluid collections. There is no free intraperitoneal air. The liver shows low-density change compatible with fatty infiltration without focal lesion. Gallbladder is contracted and contains multiple stones. Spleen, adrenals, and pancreas are normal. The left kidney shows a small nonocclusive stone in the midpole. There is no left hydronephrosis. Right kidney shows a nonocclusive stone in the midpole calyceal region. There is mild right hydronephrosis. There is a stone just beyond the right UPJ measuring about 4 mm. No stones are seen beyond this point. There is no retroperitoneal mass or adenopathy. There is no ascites or abnormal fluid collection. Visualized bowel loops including the appendix appear unremarkable. There is no pelvic mass or free fluid. IMPRESSION: There is mild right hydronephrosis secondary to a 4 mm stone in the right proximal ureter near the UPJ. Additional 4 mm intrarenal stone is seen in the mid to lower pole of the right kidney. Tiny nonocclusive stone in the left kidney. There is fatty infiltration of the liver. The gallbladder is contracted and contains multiple stones. Dictated by: Dictated on workstation # [id number]
--- NOTE | 2021-11-21 07:15 | Diagnostic Imaging Report ---
Indication: Abdominal pain. Comparison with CT scan from 09/21/2021. FINDINGS: Stomach and small bowel are not distended. There is normal stool and gas pattern throughout colon. There is no evidence of impacted stool or large stool burden. There is no organomegaly. There is calcification again noted in the proximal right ureter at the UPJ. No organomegaly. IMPRESSION: The proximal right ureteral calculus measuring approximately 4 mm appears unchanged in position when compared with previous CT scan. Dictated by: Dictated on workstation # [id number]
== END 2021-11-21 03:25 | disposition home or self-care (01) ==
LOC: EDUNIT# 00:21 → ER 00:25
DX: N13.2 Hydronephrosis with renal and ureteral calculous obstruction (principal); N39.0 Urinary tract infection, site not specified; K80.20 Calculus of gallbladder without cholecystitis without obstruction; Z28.310 Unvaccinated for COVID-19
CPT/HCPCS: 36415; 74018; 74176; 80053; 80306; 81000; 82150; 83690; 85025; 87088

== ENCOUNTER 2021-11-22 09:45 | Emergency (ER) | payer MEDICAID ==
[~2021-11-22] VITALS: Ht 182 cm; Wt 129.0 kg
--- NOTE | 2021-11-22 10:13 | ED Abdominal Pain ---
General Chief Complaint: Abdominal/GI Problems Stated Complaint: RIGHT SIDE FLANK PAIN Nursing Triage Note: RIGHT SIDED FLANK PAIN. DX WITH A KIDNEY STONE TWO DAYS AGO. WAS SCHEDULED TO HAVE HIS GALLBLADDER REMOVED TODAY BY RANDI BUT CANCELLED THAT BECAUSE OF THE PAIN. Source of Information: Patient Exam Limitations: No Limitations History of Present Illness Date Seen by Provider: Nov 22, 2021 Time Seen by Provider: 09:57 Initial Comments 21-year-old male presents the emergency department today for right flank pain. Symptoms started 2-1/2 days ago. He was seen here at the onset of his symptoms and diagnosed with a 3 mm kidney stone. He was scheduled to have gallbladder surgery today, presented and had significant pain in his right flank which has been persistent. They canceled the surgery and advised to come here. No fevers or chills. He has nausea and feels like he might vomit currently. No dysuria. He has been straining his urine without any passed stones thus far. Allergies and Home Medications Allergies Coded Allergies: orange (Verified Allergy, Unknown, 11/22/21) Patient Home Medication List Home Medication List Reviewed: Yes Ciprofloxacin HCl (Ciprofloxacin HCl) 500 Mg Tablet, 500 MG PO BID Prescribed by: NAVYA CORONA on 11/21/21245 Hydrocodone/Acetaminophen (Hydrocodone-Acetamin 5-325 mg) 5 Mg-325 Mg Tablet, 1 EACH PO Q4-6 HOURS PRN for PAIN Prescribed by: NAVYA CORONA on 11/21/21246 Ketorolac Tromethamine (Ketorolac Tromethamine) 10 Mg Tablet, 10 MG PO Q6H PRN for pain Prescribed by: Mc Meneses on 11/03/212128 Ondansetron (Ondansetron Odt) 4 Mg Tab.rapdis, 4 MG PO Q6H PRN for NAUSEA/ VOMITING Prescribed by: VIKTOR MALONE on 07/20/172047 Ondansetron (Ondansetron Odt) 8 Mg Tab.rapdis, 8 MG PO Q6H Prescribed by: NAVYA CORONA on 11/21/21245 Tamsulosin HCl (Flomax) 0.4 Mg Cap, 0.4 MG PO DAILY Prescribed by: NAVYA CORONA on 11/21/21245 Review of Systems Review of Systems Constitutional: no symptoms reported EENTM: No Symptoms Reported Respiratory: No Symptoms Reported Cardiovascular: No Symptoms Reported Gastrointestinal: Abdominal Pain, Nausea, Vomiting Past Ultrqiw-Thpypm-Qsuddt Hx Patient Social History Tobacco Use?: No Use of E-Cig and/or Vaping dev: No Substance use?: No Alcohol Use?: No Immunizations Up To Date Tetanus Booster (TDap): Less than 5yrs PED Vaccines UTD: Yes First/Initial COVID19 Vaccinat: N/A Second COVID19 Vaccination Matt: N/A Third COVID19 Vaccination Date: N/A Seasonal Allergies Seasonal Allergies: Yes Past Medical History Surgery/Hospitalization HX: ACID REFLUX Surgeries: Yes (TUBES IN EARS, PILONIDAL CYST) Ear Surgery Respiratory: No Cardiac: No Neurological: No Genitourinary: No Gastrointestinal: Yes Gall Bladder Disease Musculoskeletal: No Endocrine: Yes (suppose to be on metformin PRE-GETS TOO LOW) Diabetes, Non-Insulin dep HEENT: No Cancer: No Psychosocial: Yes Anxiety Integumentary: No Blood Disorders: No Adverse Reaction/Blood Tranf: No Family Medical History Reviewed Nursing Family Hx No Pertinent Family Hx Physical Exam Vital Signs Vital Signs - First Documented 11/22/21 09:50 Temp 35.8 Pulse 81 Resp 16 B/P (MAP) 128/71 (90) Pulse Ox 98 O2 Delivery Room Air Capillary Refill : Less Than 3 Seconds Height/Weight/BMI Height: 6'0" Weight: 250lbs. 0oz. 113.454846ud; 38.00 BMI Method:Stated General Appearance: WD/WN, other (Appears to be in pain) HEENT: normal ENT inspection, pharynx normal Neck: non-tender, supple, normal inspection Respiratory: chest non-tender, lungs clear, normal breath sounds, no respirator y distress, no accessory muscle use Cardiovascular: regular rate, rhythm, no edema, no gallop, no JVD, no murmur Gastrointestinal: normal bowel sounds, soft, no organomegaly, other (Tenderness palpation right flank, right groin. No rebound or guarding. No mass or megaly. No skin changes.) Extremities: normal range of motion, non-tender, normal inspection, no pedal edema, no calf tenderness Skin: normal color, warm/dry Progress/Results/Core Measures Results/Orders Lab Results Laboratory Tests Test 11/22/21 10:10 11/22/21 10:19 Range/Units White Blood Count 11.9 H 4.3-11.0 10^3/uL Red Blood Count 5.01 4.30-5.52 10^6/uL Hemoglobin 15.3 13.3-17.7 g/dL Hematocrit 45 40-54 % Mean Corpuscular Volume 90 80-99 fL Mean Corpuscular Hemoglobin 31 25-34 pg Mean Corpuscular Hemoglobin Concent 34 32-36 g/dL Red Cell Distribution Width 12.4 10.0-14.5 % Platelet Count 286 130-400 10^3/uL Mean Platelet Volume 9.1 9.0-12.2 fL Immature Granulocyte % (Auto) 0 % Neutrophils (%) (Auto) 73 42-75 % Lymphocytes (%) (Auto) 21 12-44 % Monocytes (%) (Auto) 6 0-12 % Eosinophils (%) (Auto) 0 0-10 % Basophils (%) (Auto) 0 0-10 % Neutrophils # (Auto) 8.7 H 1.8-7.8 10^3/uL Lymphocytes # (Auto) 2.5 1.0-4.0 10^3/uL Monocytes # (Auto) 0.7 0.0-1.0 10^3/uL Eosinophils # (Auto) 0.0 0.0-0.3 10^3/uL Basophils # (Auto) 0.0 0.0-0.1 10^3/uL Immature Granulocyte # (Auto) 0.0 0.0-0.1 10^3/uL Sodium Level 141 135-145 MMOL/L Potassium Level 4.0 3.6-5.0 MMOL/L Chloride Level 106 98-107 MMOL/L Carbon Dioxide Level 25 21-32 MMOL/L Anion Gap 10 5-14 MMOL/L Blood Urea Nitrogen 14 7-18 MG/DL Creatinine 0.99 0.60-1.30 MG/DL Estimat Glomerular Filtration Rate 110 BUN/Creatinine Ratio 14 Glucose Level 113 H 70-105 MG/DL Calcium Level 9.7 8.5-10.1 MG/DL Urine Color RED H Urine Clarity CLOUDY Urine pH 5.0 5-9 Urine Specific [place] >=1.030 1.016-1.022 Urine Protein 2+ H NEGATIVE Urine Glucose (UA) NEGATIVE NEGATIVE Urine Ketones TRACE H NEGATIVE Urine Nitrite NEGATIVE NEGATIVE Urine Bilirubin NEGATIVE NEGATIVE Urine Urobilinogen 1.0 < = 1.0 MG/DL Urine Leukocyte Esterase NEGATIVE NEGATIVE Urine RBC (Auto) 3+ H NEGATIVE Urine RBC TNTC H /HPF Urine WBC 0-2 /HPF Urine Squamous Epithelial Cells RARE /HPF Urine Crystals NONE /LPF Urine Bacteria FEW H /HPF Urine Casts NONE /LPF Urine Mucus LARGE H /LPF Urine Culture Indicated NO My Orders Orders - PATITOHEATHER Pancho DO Cbc With Automated Diff (11/22/21 10:08) Basic Metabolic Panel (11/22/21 10:08) Ua Culture If Indicated (11/22/21 10:08) Morphine Injection (Morphine Injection (11/22/21 10:15) Ketorolac Injection (Toradol Injection) (11/22/21 10:15) Ct Abd/Pelvis Wo(Kidney Stone) (11/22/21 10:10) Ondansetron Injection (Zofran Injectio (11/22/21 10:15) Ketorolac Injection (Toradol Injection) (11/22/21 10:30) Morphine Injection (Morphine Injection (11/22/21 10:20) Ns Iv 1000 Ml (Sodium Chloride 0.9%) (11/22/21 10:30) Medications Given in ED Current Medications Medications Dose Ordered Sig/Conrad Route Start Time Stop Time Status Last Admin Dose Admin Ketorolac Tromethamine 15 mg Q6H PRN IVP 11/22/21 10:30 11/22/21 12:00 DC 11/22/21 10:26 15 MG Ondansetron HCl 8 mg ONCE ONCE IVP 11/22/21 10:15 11/22/21 10:16 DC 11/22/21 10:25 8 MG Vital Signs/I&O 11/22/21 11/22/21 09:50 11:59 Temp 35.8 Pulse 81 73 Resp 16 16 B/P (MAP) 128/71 (90) 124/82 Pulse Ox 98 100 O2 Delivery Room Air Room Air Blood Pressure Mean: 90 Departure Communication (Admissions) Patient pain has completely resolved. Anticipate the stone has likely dropped into the bladder at this point. He is already on antibiotics, has pain medication and nausea medicine at home. To be discharged in stable condition . Impression Primary Impression: Ureterolithiasis Additional Impression: Renal colic on right side Disposition: 01 HOME, SELF-CARE Condition: Stable Departure-Patient Inst. Referrals: [facility] (PCP/Family) Primary Care Physician Patient Instructions: Kidney Stone Diet, Renal Colic Add. Discharge Instructions: Continue to take home pain, nausea medications as needed. Take the antibiotics as prescribed until they are gone. Follow-up with Dr. Delgado as scheduled. Return to the emergency department for any severe concerns or uncontrolled pain. All discharge instructions reviewed with patient and/or family. Voiced underst anding. HEATHER CAPUTO DO Nov 22, 2021 10:13
[2021-11-22] MEDS ORDERED: KETOROLAC 15 MG/ML VIAL IVP ONE (10:15)
[2021-11-22] MEDS ORDERED: morphine INJ 4 MG/ML 1 ML (VIAL/SYRINGE) IVP ONE (10:15)
[2021-11-22] MEDS ORDERED: ONDANSETRON 4 MG/2 ML (SDV) Z0FRAN IVP ONE (10:15)
[2021-11-22 10:19] LABS: BASOPHILS % (AUTO) 0 % (0-10); EOSINOPHILS % (AUTO) 0 % (0-10); HEMATOCRIT 45 % (40-54); HEMOGLOBIN 15.3 g/dL (13.3-17.7); LYMPHOCYTES # (AUTO) 2.5 10^3/uL (1.0-4.0); LYMPHOCYTES % (AUTO) 21 % (12-44); MEAN CORPUSCULAR HEMOGLOBIN 31 pg (25-34); MEAN CORPUSCULAR HGB CONC 34 g/dL (32-36); MEAN CORPUSCULAR VOLUME 90 fL (80-99); MEAN PLATELET VOLUME 9.1 fL (9.0-12.2); MONOCYTES # (AUTO) 0.7 10^3/uL (0.0-1.0); MONOCYTES % (AUTO) 6 % (0-12); NEUTROPHILS # (AUTO) 8.7 10^3/uL (1.8-7.8); NEUTROPHILS % (AUTO) 73 % (42-75); PLATELET COUNT 286 10^3/uL (130-400); WHITE BLOOD COUNT 11.9 10^3/uL (4.3-11.0)
[2021-11-22] MEDS ORDERED: morphine INJ 10 MG/ML 1ML (SYR OR VIAL) IVP STA (10:20)
[2021-11-22 10:21] LABS: BILIRUBIN,URINE NEGATIVE (NEGATIVE); CLARITY,URINE CLOUDY; COLOR,URINE RED; GLUCOSE, URINE (UA) NEGATIVE (NEGATIVE); KETONES,URINE TRACE (NEGATIVE); LEUKOCYTE ESTERASE ,URINE NEGATIVE (NEGATIVE); NITRITE,URINE NEGATIVE (NEGATIVE); PROTEIN,URINE 2+ (NEGATIVE)
[2021-11-22] MEDS ORDERED: KETOROLAC 30 MG/ML VIAL IVP PRN (10:30)
[2021-11-22] MEDS ORDERED: NS IV 1000 ML 1,000 ML IV SCH (10:30)
[2021-11-22 10:32] LABS: CALCIUM 9.7 MG/DL (8.5-10.1)
[2021-11-22 10:36] LABS: CREATININE SERUM 0.99 MG/DL (0.60-1.30)
[2021-11-22 10:40] LABS: RBC,URINE TNTC /HPF
[2021-11-22 10:45] LABS: BACTERIA,URINE FEW /HPF; SQUAMOUS EPITHELIAL CELL,UR RARE /HPF
[2021-11-22 10:46] LABS: WBC,URINE 0-2 /HPF
--- NOTE | 2021-11-22 11:24 | Diagnostic Imaging Report ---
PROCEDURE: CT urinary tract, rule out kidney stone. TECHNIQUE: Multiple contiguous axial images were obtained through the abdomen and pelvis without the use of intravenous contrast. Auto Exposure Controls were utilized during the CT exam to meet ALARA standards for radiation dose reduction. INDICATION: Right flank pain. Comparison is made with prior CT from 11/21/2021. FINDINGS: The lung bases are clear. Liver shows diffuse low attenuation consistent with hepatic steatosis. There are stones in the gallbladder. No biliary ductal dilatation is seen. Pancreas and spleen are unremarkable. No adrenal mass is detected. A nonobstructing intrarenal calculus in the right kidney is again noted. Previously noted proximal right ureteric calculus has progressed distally and is now located at the UVJ. There is mild right-sided hydroureteronephrosis. Left kidney and left ureter are unremarkable. Aorta is nonaneurysmal. Bowel loops are normal in caliber. There is no ascites. Prostate is unremarkable. IMPRESSION: Small nonobstructing right renal calculus. Previously noted proximal right ureteric calculus is now located at the UVJ and produces mild hydroureteronephrosis. Dictated by: Dictated on workstation # [id number]
[2021-11-22 11:59] VITALS: BP 124/82
== END 2021-11-22 11:59 | disposition home or self-care (01) ==
LOC: EDUNIT# 09:45 → ER 09:47
DX: N23 Unspecified renal colic (principal); N20.1 Calculus of ureter; Z28.310 Unvaccinated for COVID-19
CPT/HCPCS: 36415; 74176; 80048; 81000; 85025

== ENCOUNTER → 2021-11-22 | Day surgery (SDC) | payer MEDICAID ==
[~2021-11-22] MED LIST changes: +CIPR500T5 PO; +ONDA8TAB13 PO; +TMSL.4C PO
== END | disposition home or self-care (01) ==
LOC: SDC 08:43
PROVIDERS: ATTEND Surgery
DX: K80.10 Calculus of gallbladder with chronic cholecystitis without obstruction (principal); Z53.09 Procedure and treatment not carried out because of other contraindication

== ENCOUNTER 2021-12-20 05:36 | Outpatient (CLI) | payer MEDICAID ==
[~2021-12-20] VITALS: Ht 185 cm; Wt 123.0 kg
== END 2021-12-21 10:15 | disposition home or self-care (01) ==
LOC: PREOP 05:36
PROVIDERS: ATTEND Surgery
DX: Z01.818 Encounter for other preprocedural examination (principal)

== ENCOUNTER 2021-12-23 17:30 | Emergency (ER) | payer MEDICAID ==
[~2021-12-23] VITALS: Ht 184 cm; Wt 123.0 kg
[2021-12-23 18:21] LABS: BILIRUBIN,URINE NEGATIVE (NEGATIVE); CLARITY,URINE CLEAR; COLOR,URINE YELLOW; GLUCOSE, URINE (UA) NEGATIVE (NEGATIVE); KETONES,URINE NEGATIVE (NEGATIVE); LEUKOCYTE ESTERASE ,URINE NEGATIVE (NEGATIVE); NITRITE,URINE NEGATIVE (NEGATIVE); PROTEIN,URINE NEGATIVE (NEGATIVE)
[2021-12-23 18:28] LABS: BASOPHILS % (AUTO) 0 % (0-10); EOSINOPHILS # (AUTO) 0.1 10^3/uL (0.0-0.3); EOSINOPHILS % (AUTO) 1 % (0-10); HEMATOCRIT 45 % (40-54); HEMOGLOBIN 15.4 g/dL (13.3-17.7); LYMPHOCYTES # (AUTO) 4.3 10^3/uL (1.0-4.0); LYMPHOCYTES % (AUTO) 39 % (12-44); MEAN CORPUSCULAR HEMOGLOBIN 31 pg (25-34); MEAN CORPUSCULAR HGB CONC 34 g/dL (32-36); MEAN CORPUSCULAR VOLUME 89 fL (80-99); MEAN PLATELET VOLUME 9.6 fL (9.0-12.2); MONOCYTES # (AUTO) 0.8 10^3/uL (0.0-1.0); MONOCYTES % (AUTO) 7 % (0-12); NEUTROPHILS # (AUTO) 5.9 10^3/uL (1.8-7.8); NEUTROPHILS % (AUTO) 53 % (42-75); PLATELET COUNT 316 10^3/uL (130-400); WHITE BLOOD COUNT 11.1 10^3/uL (4.3-11.0)
[2021-12-23] MEDS ORDERED: LIDOCAINE 2% VISCOUS 15 ML UDC PO ONE (18:30)
[2021-12-23] MEDS ORDERED: ONDANSETRON 4 MG/2 ML (SDV) Z0FRAN IVP ONE (18:30)
[2021-12-23] MEDS ORDERED: ANTACID SUSP 30 ML UDC (MYLANTA) PO ONE (18:30)
[2021-12-23 18:35] LABS: ALBUMIN 4.6 GM/DL (3.2-4.5); CHLORIDE 104 MMOL/L (98-107); POTASSIUM 3.9 MMOL/L (3.6-5.0); SODIUM 139 MMOL/L (135-145)
[2021-12-23 18:36] LABS: BACTERIA,URINE NEGATIVE /HPF
[2021-12-23 18:37] LABS: GLUCOSE 84 MG/DL (70-105)
[2021-12-23 18:38] LABS: TOTAL PROTEIN 8.4 GM/DL (6.4-8.2)
[2021-12-23 18:39] LABS: BILIRUBIN,TOTAL 0.4 MG/DL (0.1-1.0); CARBON DIOXIDE 23 MMOL/L (21-32)
[2021-12-23 18:41] LABS: ALKALINE PHOSPHATASE 87 U/L (40-136); CREATININE SERUM 0.94 MG/DL (0.60-1.30); GFR ESTIMATED 118
[2021-12-23 18:42] LABS: BUN/CREATININE RATIO 10
[2021-12-23 18:44] LABS: ALANINE AMINOTRANSFERASE 54 U/L (0-55)
[2021-12-23 18:45] LABS: LIPASE 29 U/L (8-78)
[2021-12-23] MEDS ORDERED: FAMOTIDINE 20 MG (PEPCID) TABLET PO ONE (19:30)
--- NOTE | 2021-12-23 19:39 | ED Abdominal Pain ---
General Chief Complaint: Abdominal/GI Problems Stated Complaint: LET SIDE ABD/BACK PAIN Nursing Triage Note: PT STATES LT ABD PAIN AND IN BACK, SCHEDULED FOR GALLBLADDER SURGERY WITH RANDI THIS FRIDAY, WAS SCANNED HERE A COUPLE MONTHS AGO FOR THE SAME. RECENT KIDNEY STONE Source of Information: Patient Exam Limitations: No Limitations History of Present Illness Date Seen by Provider: Dec 23, 2021 Time Seen by Provider: 18:10 Initial Comments This 21-year-old young man presents to the emergency room with complaints of left upper abdominal pain. He has been experiencing upper abdominal pain attributed to gallbladder disease. He is scheduled to have cholecystectomy with Dr. Bryan on . Patient ate pizza last night. He woke at 530 this morning with left upper quadrant pain. Pain eventually subsided. He later ate some chips and the pain rebounded at about 1500. He had previously been experiencing left upper quadrant pain for which he took omeprazole. He stopped taking omeprazole 4 days ago when it did not seem to help his pain. Allergies and Home Medications Allergies Coded Allergies: orange (Verified Allergy, Unknown, 11/22/21) Uncoded Allergies: ORANGE COATING ON MEDICATIONS (Adverse Reaction, Intermediate, 12/21/21) TONGUE TINGLING Patient Home Medication List Home Medication List Reviewed: Yes Discontinued Medications Ciprofloxacin HCl (Ciprofloxacin HCl) 500 Mg Tablet, 500 MG PO BID Discontinued Reason: No Longer Taking Prescribed by: NAVYA CORONA on 11/21/21 0246 Hydrocodone/Acetaminophen (Hydrocodone-Acetamin 5-325 mg) 5 Mg-325 Mg Tablet, 1 EACH PO Q4-6 HOURS PRN for PAIN Discontinued Reason: No Longer Taking Prescribed by: NAVYA CORONA on 11/21/21 0247 Ketorolac Tromethamine (Ketorolac Tromethamine) 10 Mg Tablet, 10 MG PO Q6H PRN for pain Discontinued Reason: No Longer Taking Prescribed by: Mc Meneses on 11/03/212128 Ondansetron (Ondansetron Odt) 4 Mg Tab.rapdis, 4 MG PO Q6H PRN for NAUSEA/VOMITING Discontinued Reason: No Longer Taking Prescribed by: VIKTOR MALONE on 07/20/172047 Ondansetron (Ondansetron Odt) 8 Mg Tab.rapdis, 8 MG PO Q6H Discontinued Reason: No Longer Taking Prescribed by: NAVYA CORONA on 11/21/21245 Tamsulosin HCl (Flomax) 0.4 Mg Cap, 0.4 MG PO DAILY Discontinued Reason: No Longer Taking Prescribed by: NAVYA CORONA on 11/21/21245 Review of Systems Review of Systems Constitutional: no symptoms reported EENTM: No Symptoms Reported Respiratory: No Symptoms Reported Cardiovascular: No Symptoms Reported Gastrointestinal: See HPI Genitourinary: No Symptoms Reported Musculoskeletal: no symptoms reported Skin: no symptoms reported Psychiatric/Neurological: No Symptoms Reported Endocrine: No Symptoms Reported Hematologic/Lymphatic: No Symptoms Reported Past Ijatfrq-Qvjtbs-Mxxlfj Hx Patient Social History Tobacco Use?: No Substance use?: No Alcohol Use?: Yes Alcohol type: Hard Liquor Alcohol Frequency: Once in a while Immunizations Up To Date Tetanus Booster (TDap): Unknown PED Vaccines UTD: Yes First/Initial COVID19 Vaccinat: N/A Second COVID19 Vaccination Matt: N/A Third COVID19 Vaccination Date: N/A Seasonal Allergies Seasonal Allergies: Yes Past Medical History Surgery/Hospitalization HX: ACID REFLUX Surgeries: Yes (TUBES IN EARS, PILONIDAL CYST) Ear Surgery Respiratory: No Cardiac: No Neurological: No Genitourinary: Yes Kidney Stones Gastrointestinal: Yes (GALLBLADDER - ACUTE CONSTIPATION) Gastroesophageal Reflux, Gall Bladder Disease Musculoskeletal: No Endocrine: Yes (PRE DIABETIC - LOW BLOOD SUGAR) Diabetes, Non-Insulin dep HEENT: No Cancer: No Psychosocial: Yes Anxiety Integumentary: No Blood Disorders: No Adverse Reaction/Blood Tranf: No Family Medical History No Pertinent Family Hx Physical Exam Vital Signs Vital Signs - First Documented 12/23/21 17:42 Temp 36.8 Pulse 101 Resp 20 B/P (MAP) 135/92 (106) Pulse Ox 97 O2 Delivery Room Air Capillary Refill : Less Than 3 Seconds Height/Weight/BMI Height: 6'0" Weight: 250lbs. 0oz. [id number]; 36.00 BMI Method:Stated General Appearance: WD/WN, no apparent distress HEENT: normal ENT inspection Neck: normal inspection Respiratory: lungs clear, normal breath sounds, no respiratory distress Cardiovascular: regular rate, rhythm, no edema, no murmur Gastrointestinal: normal bowel sounds, soft; No distended; tenderness (Minimal in the left upper quadrant and right upper quadrant) Extremities: normal inspection, no pedal edema Neurologic/Psychiatric: no motor/sensory deficits, alert, normal mood/affect, oriented x 3 Skin: normal color, warm/dry Progress/Results/Core Measures Results/Orders Lab Results Laboratory Tests Test 12/23/21 17:45 12/23/21 17:50 Range/Units White Blood Count 11.1 H 4.3-11.0 10^3/uL Red Blood Count 5.02 4.30-5.52 10^6/uL Hemoglobin 15.4 13.3-17.7 g/dL Hematocrit 45 40-54 % Mean Corpuscular Volume 89 80-99 fL Mean Corpuscular Hemoglobin 31 25-34 pg Mean Corpuscular Hemoglobin Concent 34 32-36 g/dL Red Cell Distribution Width 12.1 10.0-14.5 % Platelet Count 316 130-400 10^3/uL Mean Platelet Volume 9.6 9.0-12.2 fL Immature Granulocyte % (Auto) 0 % Neutrophils (%) (Auto) 53 42-75 % Lymphocytes (%) (Auto) 39 12-44 % Monocytes (%) (Auto) 7 0-12 % Eosinophils (%) (Auto) 1 0-10 % Basophils (%) (Auto) 0 0-10 % Neutrophils # (Auto) 5.9 1.8-7.8 10^3/uL Lymphocytes # (Auto) 4.3 H 1.0-4.0 10^3/uL Monocytes # (Auto) 0.8 0.0-1.0 10^3/uL Eosinophils # (Auto) 0.1 0.0-0.3 10^3/uL Basophils # (Auto) 0.0 0.0-0.1 10^3/uL Immature Granulocyte # (Auto) 0.0 0.0-0.1 10^3/uL Sodium Level 139 135-145 MMOL/L Potassium Level 3.9 3.6-5.0 MMOL/L Chloride Level 104 98-107 MMOL/L Carbon Dioxide Level 23 21-32 MMOL/L Anion Gap 12 5-14 MMOL/L Blood Urea Nitrogen 9 7-18 MG/DL Creatinine 0.94 0.60-1.30 MG/DL Estimat Glomerular Filtration Rate 118 BUN/Creatinine Ratio 10 Glucose Level 84 70-105 MG/DL Calcium Level 10.0 8.5-10.1 MG/DL Corrected Calcium 8.5-10.1 MG/DL Total Bilirubin 0.4 0.1-1.0 MG/DL Aspartate Amino Transf (AST/SGOT) 26 5-34 U/L Alanine Aminotransferase (ALT/SGPT) 54 0-55 U/L Alkaline Phosphatase 87 40-136 U/L C-Reactive Protein High Sensitivity 0.57 H 0.00-0.50 MG/DL Total Protein 8.4 H 6.4-8.2 GM/DL Albumin 4.6 H 3.2-4.5 GM/DL Lipase 29 8-78 U/L Urine Color YELLOW Urine Clarity CLEAR Urine pH 6.0 5-9 Urine Specific Ovid 1.015 L 1.016-1.022 Urine Protein NEGATIVE NEGATIVE Urine Glucose (UA) NEGATIVE NEGATIVE Urine Ketones NEGATIVE NEGATIVE Urine Nitrite NEGATIVE NEGATIVE Urine Bilirubin NEGATIVE NEGATIVE Urine Urobilinogen 0.2 < = 1.0 MG/DL Urine Leukocyte Esterase NEGATIVE NEGATIVE Urine RBC (Auto) NEGATIVE NEGATIVE Urine RBC NONE /HPF Urine WBC NONE /HPF Urine Squamous Epithelial Cells NONE /HPF Urine Crystals NONE /LPF Urine Bacteria NEGATIVE /HPF Urine Casts NONE /LPF Urine Mucus NEGATIVE /LPF Urine Culture Indicated NO My Orders Orders - HOA RO MD Ua Culture If Indicated (12/23/21 18:11) Ondansetron Injection (Zofran Injectio (12/23/21 18:30) Lidocaine 2% Viscous 15 Ml (Xylocaine Vi (12/23/21 18:30) Antacid Suspension (Mylanta Suspension (12/23/21 18:30) Cbc With Automated Diff (12/23/21 18:22) Comprehensive Metabolic Panel (12/23/21 18:22) Hs C Reactive Protein (12/23/21 18:22) Lipase (12/23/21 18:22) Ed Iv/Invasive Line Start (12/23/21 18:22) Famotidine Tablet (Pepcid Tablet) (12/23/21 19:30) Medications Given in ED Vital Signs/I&O 12/23/21 12/23/21 17:42 19:47 Temp 36.8 36.8 Pulse 101 101 Resp 20 20 B/P (MAP) 135/92 (106) 135/92 Pulse Ox 97 97 O2 Delivery Room Air Room Air Blood Pressure Mean: 106 Progress Progress Note : Progress Note Labs were unremarkable suggesting no cholecystitis. GI cocktail briefly improved his pain. See discharge instructions for further discussion. Dr. Bryan was notified of the left upper quadrant pain and patient was advised to discuss the possibility of upper endoscopy during his cholecystectomy. Departure Impression Primary Impression: Left upper quadrant pain Disposition: 01 HOME, SELF-CARE Condition: Stable Departure-Patient Inst. Decision time for Depature: 19:32 Referrals: [facility] (PCP/Family) Primary Care Physician Patient Instructions: Abdominal Pain, Adult ED, Esophagitis, Gastritis ED Add. Discharge Instructions: Your left upper abdominal pain could be from inflammation of the stomach and/or esophagus (gastritis/esophagitis). For pain you may take Tylenol (acetaminophen) up to 1000 mg every 6 hours as needed. You may also try Tums per package instructions. For possible acid reflux and gastritis, you may try taking Pepcid (famotidine) purchased [id number] 20 mg twice daily instead of omeprazole. Avoid the following: Eating large meals, eating close to bedtime, caffeine, carbonation, citrus fruits and juices, tomato products, chocolate, alcohol, tobacco, mints, fatty/greasy foods, spicy foods, NSAID medications such as ibuprofen or naproxen, or anything else you know irritates your stomach. Fats, greases, and oils (even the fat in 1% milk) may trigger gallbladder symptoms. Avoid fats, greases, and oils. Dr. Bryan was notified of your pain in the left upper abdomen. You may wish to contact his office on Friday and ask about possibly including upper endoscopy with your cholecystectomy (gallbladder removal). Return to care if you are having worsening symptoms despite following these instructions. All discharge instructions reviewed with patient and/or family. Voiced understanding. Copy Copies To 1: USHA BRYAN DO Copies To 2: [facility]/HOA DUTTA MD Dec 23, 2021 19:39
[2021-12-23 19:47] VITALS: BP 135/92
[2021-12-27] MEDS ORDERED: DOCU-143 PO (11:24)
[2021-12-27] MEDS ORDERED: ACHD5005 PO (11:24)
== END 2021-12-23 19:47 | disposition home or self-care (01) ==
LOC: EDUNIT# 17:30 → ER 17:32
DX: R10.12 Left upper quadrant pain (principal); Z87.19 Personal history of other diseases of the digestive system; Z28.310 Unvaccinated for COVID-19
CPT/HCPCS: 36415; 80053; 81000; 83690; 85025; 86141; 99283

== ENCOUNTER 2021-12-27 08:36 | Day surgery (SDC) | payer MEDICAID ==
[~2021-12-27] VITALS: Ht 185 cm; Wt 123.0 kg
[2021-12-27] VITALS (12 sets, daily range): BP systolic 121–160; BP diastolic 66–92
[2021-12-27] MEDS ORDERED: ceFAZolin INJECTION 2,000 MG in NS (IVPB) 50 ML IV ONE (09:00)
[2021-12-27] MEDS ORDERED: ONDANSETRON 4 MG/2 ML (SDV) Z0FRAN ONE (09:12)
[2021-12-27] MEDS ORDERED: FAMOTIDINE 20MG/2ML IV (PEPCID) ONE (09:13)
[2021-12-27] MEDS: LACTATED RINGERS 1,000 ML IV PRN ×2 (09:18→10:35)
[2021-12-27] MEDS ORDERED: FAMOTIDINE 20MG/2ML IV (PEPCID) IV ONE (09:30)
[2021-12-27] MEDS ORDERED: ONDANSETRON 4 MG/2 ML (SDV) Z0FRAN IV ONE (09:30)
[2021-12-27] MEDS ORDERED: BUP/EPI 0.5% 1:200,000 (MARCAINE) 10ML VIAL IJ ONE (09:51)
[2021-12-27] MEDS ORDERED: BUP/EPI 0.5% 1:200,000 (SENSORCAINE) 30 ML VIAL INJ ONE (10:38)
[2021-12-27] MEDS ORDERED: IOHEXOL 300 MG/ML 30 ML (OMNIPAQUE 300) VIAL INJ ONE (10:46)
[2021-12-27] MEDS ORDERED: DOCU-143 PO (11:24)
[2021-12-27] MEDS ORDERED: ACHD5005 PO (11:24)
--- NOTE | 2021-12-27 11:25 | Discharge Inst-Simple/Standard ---
Discharge Inst-Standard Discharge Medications New, Converted or Re-Newed RX: Transmitted to Pharmacy Patient Instructions/Follow Up Plan of Care/Instructions/FU: 2 weeks charisse Activity as Tolerated: No Discharge Diet: Regular Diet Other Inst to Patient Follow up Appt: Make appointment for 2 weeks. Instructions: No lifting greater than 10 pounds. No strenuous activity. May shower in 24 hours, no tub bath or soaking. Use incentive spirometer at home as directed. No Smoking Skin/Wound Care: You have special glue over incision, it will fall off on it's own. Symptoms to Report: Appetite Changes, Extremity Discoloration, Numbness/Tingling, Swelling Increased, Bleeding Excessive, Eyesight Changes, Pain Increased, Urine Color Change, Constipation(Persistent), Fever over 101 degree F, Pain/Pressure in chest, Urinating Difficulty, Cough Up/Vomit Blood, Heart Beat Irreg/Pounding, Pain/Pressure in jaw, Vaginal Bleeding Increase, Cramps in feet or legs, Lightheadedness, Pain/Pressure in shoulder, Diarrhea(Persistent), Memory Changes Suddenly, Questions/Concerns, Weight gain consecutive days, Dizziness/Fainting, Nausea/Vomiting, Shortness of Breath, Weight gain over 2 pounds. If eyes or skin turn yellow notify physician. If questions or concerns contact your physician Or seek help at emergency department. USHA BRYAN DO Dec 27, 2021 11:25
--- NOTE | 2021-12-27 11:29 | Progress Note-Post Operative ---
Post-Operative Progess Note Surgeon (s)/Journalist (s) Surgeon USHA BRYAN DO Journalist: Dr. Clemente to assist in retraction dissection and closure. Pre-Operative Diagnosis CHOLELITHIASIS, CHOLECYSTITIS Post-Operative Diagnosis same Procedure & Operative Findings Date of Procedure 12/27/21 Procedure Performed/Findings PROCEDURE: Laparoscopic cholecystectomy with attempted intraoperative cholangiogram. COMPLICATIONS: None. PROCEDURE: The patient was taken to the operating suite and was prepped and draped in sterile fashion. A surgical pause was performed. Just superior to the umbilicus, a 12 mm incision was made. Dissection was taken down to the fascia, which was then scored and grasped with a Radha and the abdomen was then entered. A 0 Vicryl suture was placed in a vaahca-xs-lqfro fashion and a Jaffe trocar was placed and secured. Pneumoperitoneum was achieved. A 5mm trochar place in the subxyphoid and 2 in the right upper quadrant. The gallbladder was then grasped and elevated taking off adhesions. The cystic duct, and cystic artery were then dissected out. Clip was placed on the distal portion of the cystic duct which was then partially transected. An arrow catheter was attempted to be inserted into the duct. The duct was to small for cather so cholangiogram was not performed. Clips were placed on proximal portion of the cystic duct and then the duct was then transected. Clips were placed along the proximal and distal portion of the cystic artery which was then transected. Hook cautery was used to dissect the gallbladder from the gallbladder fossa achieving hemostasis. The gallbladder was placed in an Endobag and removed through the 12 mm trocar site. The abdomen was then reinspected. Copious amounts of irrigation were used to irrigate the abdomen and there were no signs of active bleeding. Hemostasis had been achieved. The 12 mm fascial defect was then closed with 0 Vicryl suture that had been placed in a [id number] fashion. The abdomen was then desufflated, the trocars were removed. The abdomen was then washed and dried. The skin was then closed using 4-0 Monocryl in a subcuticular fashion. The abdomen was washed and dried and Skin Affix was place over incisions. Patient tolerated the procedure well without any complications and was taken to the recovery room in stable condition. Anesthesia Type general Estimated Blood Loss Estimated blood loss (mL): minimal Specimens/Packing Specimens Removed gallbladder USHA BRYAN DO Dec 27, 2021 11:29
--- NOTE | 2021-12-27 11:56 | Anesthesia-General Post-Op ---
General Patient Condition Mental Status/LOC: Same as Preop Cardiovascular: Satisfactory Nausea/Vomiting: Absent Respiratory: Satisfactory Pain: Controlled Complications: Absent Post Op Complications Complications None Follow Up Care/Instructions Patient Instructions None needed. Anesthesia/Patient Condition Patient Condition Patient is doing well, no complaints, stable vital signs, no apparent adverse anesthesia problems. No complications reported per nursing. SALVADOR LUIS CRNA Dec 27, 2021 11:56
[2021-12-27] MEDS ORDERED: fentaNYL INJ 100 MCG/2 ML AMP IVP ONE (12:00)
[2021-12-27] MEDS ORDERED: ONDANSETRON 4 MG/2 ML (SDV) Z0FRAN IVP PRN (12:00)
== END 2021-12-27 15:30 | disposition home or self-care (01) ==
LOC: SDC 08:36
PROVIDERS: ATTEND Surgery
DX: K80.10 Calculus of gallbladder with chronic cholecystitis without obstruction (principal); Z87.891 Personal history of nicotine dependence; E66.9 Obesity, unspecified; Z68.35 Body mass index [BMI] 35.0-35.9, adult; Z28.310 Unvaccinated for COVID-19
CPT/HCPCS: 87081

== ENCOUNTER 2022-12-07 23:19 | Emergency (ER) | payer MEDICAID ==
[~2022-12-07] VITALS: Ht 183 cm; Wt 127.0 kg
[2022-12-07 23:28] VITALS: BP 141/105
--- NOTE | 2022-12-07 23:36 | ED Cough/URI ---
General Chief Complaint: COVID19 Suspect/Confirmed Stated Complaint: COVID+,THROAT PINO,SPINE PX Source: patient History of Present Illness Date Seen by Provider: Dec 07, 2022 Time Seen by Provider: 23:28 Initial Comments PT ARRIVES VIA POV FROM HOME PT BEGAN GETTING SICK ON FRIDAY--SORE THROAT, BODY ACHES, NASAL CONGESTION, COUGH WENT TO [facility] AND TESTED NEGATIVE FOR COVID WENT BACK TO [facility] ON FRIDAY BECAUSE HE WAS NOT BETTER, AND TESTED POSITIVE FOR COVID. NO RX PT IS HERE TONIGHT--"JUST WANTED CHECKED TO MAKE SURE I WAS OK AND THAT I DIDN'T HAVE ASTHMA" STATES HIS THROAT PINO--BUT IS NOT SORE IT WAS NO SHORTNESS OF BREATH OR WHEEZING OR ANY DIFFICULTY BREATHING NO CHEST PAIN NO FEVER HE HAS NOT TAKEN ANY TYLENOL OR MOTRIN HE TOOK DAYQUIL ONCE HE HAS NOT DONE OR TRIED ANYTHING ELSE FOR SYMPTOMS HE DOES NOT HAVE ANY MEDICAL PROBLEMS PCP: [facility] Allergies and Home Medications Allergies Uncoded Allergies: ORANGE COATING ON MEDICATIONS (Adverse Reaction, Intermediate, 12/21/21) TONGUE TINGLING Patient Home Medication List Home Medication List Reviewed: Yes Docusate Sodium (Colace) 100 Mg Capsule, 100 MG PO BID Prescribed by: USHA BRYAN on 12/27/21 1124 Hydrocodone/Acetaminophen (Hydrocodone-Acetamin 5-325 mg) 5 Mg-325 Mg Tablet, 1 EACH PO Q4H PRN for PAIN-MODERATE (5-7) Prescribed by: USHA BRYAN on 12/27/21 1124 Review of Systems Review of Systems Constitutional: no symptoms reported EENTM: see HPI Respiratory: see HPI Cardiovascular: no symptoms reported Gastrointestinal: no symptoms reported Genitourinary: no symptoms reported Musculoskeletal: see HPI Skin: no symptoms reported Psychiatric/Neurological: No Symptoms Reported Hematologic/Lymphatic: No Symptoms Reported Immunological/Allergic: no symptoms reported Past Kyavazy-Tpyuns-Dvxtpe Hx Patient Social History Tobacco Use?: No Substance use?: No Alcohol Use?: No Immunizations Up To Date Tetanus Booster (TDap): Unknown PED Vaccines UTD: Yes First/Initial COVID19 Vaccinat: N/A Second COVID19 Vaccination Matt: N/A Third COVID19 Vaccination Date: N/A Seasonal Allergies Seasonal Allergies: Yes Past Medical History Surgery/Hospitalization HX: ACID REFLUX Surgeries: Yes (TUBES IN EARS, PILONIDAL CYST) Ear Surgery Respiratory: No Currently Using CPAP: No Currently Using BIPAP: No Cardiac: No Neurological: No Genitourinary: Yes Kidney Stones Gastrointestinal: Yes (GALLBLADDER - ACUTE CONSTIPATION) Gastroesophageal Reflux, Gall Bladder Disease Musculoskeletal: No Endocrine: Yes (PRE DIABETIC - LOW BLOOD SUGAR) Diabetes, Non-Insulin dep HEENT: No Cancer: No Psychosocial: Yes Anxiety Integumentary: No Blood Disorders: No Adverse Reaction/Blood Tranf: No Family Medical History No Pertinent Family Hx Physical Exam Vital Signs - First Documented Capillary Refill : Height: 6'0" Weight: 250lbs. 0oz. 113.973595yp; 35.93 BMI Method:Stated General Appearance: WD/WN, no apparent distress, obese, other (DOES NOT APPEAR ILL OR TO BE IN DISCOMFORT OR DISTRESS) HEENT: PERRL/EOMI, normal ENT inspection, TMs normal, pharynx normal, other (VOICE NORMAL. ) Neck: non-tender, full range of motion, supple, normal inspection Respiratory: normal breath sounds, no respiratory distress, no accessory muscle use Cardiovascular: regular rate, rhythm, no murmur Extremities: normal inspection Neurologic/Psychiatric: road tester II-XII nml as tested, no motor/sensory deficits, alert, normal mood/affect, oriented x 3 Skin: normal color, warm/dry Progress/Results/Core Measures Suspected Sepsis SIRS Temperature: Pulse: Respiratory Rate: Blood Pressure / Mean: Results/Orders Vital Signs/I&O 12/07/22 12/07/22 23:28 23:28 Temp 37.1 Pulse 93 Resp 18 B/P (MAP) 141/105 (117) Pulse Ox 98 O2 Delivery Room Air Room Air Capillary Refill : Progress Note : Progress Note PLACED IN ISOLATION ROOM PPE WORN VITALS STABLE, O2 [id number]% ON ROOM AIR EXAM IS NORMAL NO COUGH AT ANY TIME NO DYSPNEA NO HYPOXIA DISCUSSED SYMPTOMATIC TREATMENT, ANTICIPATED COURSE, NEED FOR FOLLOW UP AND RETURN PRECAUTIONS Departure Impression Primary Impression: COVID-19 virus infection Disposition: HOME, SELF-CARE Condition: Stable Departure-Patient Inst. Decision time for Depature: 23:35 Referrals: EMIL HORTA APRN (PCP) Primary Care Physician [facility] (Family) Primary Care Physician Patient Instructions: COVID-19 (DC), COVID-19 Home Care/Discharge Add. Discharge Instructions: LOTS OF CLEAR LIQUIDS TYLENOL 1 GRAM PLUS MOTRIN 800 MG 4 TIMES A DAY FOR PAIN OR FEVER OVER THE COUNTER CEPACOL LOZENGES FOR THROAT PAIN FREQUENT SALT WATER GARGLES OVER THE COUNTER MEDICATIONS FOR COUGH AND CONGESTION QUARANTINE X 7 DAYS FOLLOW UP WITH [facility] NEEDED All discharge instructions reviewed with patient and/or family. Voiced understanding. NAVYA CORONA DO Dec 07, 2022 23:36
== END 2022-12-07 23:38 | disposition home or self-care (01) ==
LOC: EDUNIT# 23:19 → ER 23:24
DX: U07.1 COVID-19 (principal); E66.9 Obesity, unspecified; Z68.35 Body mass index [BMI] 35.0-35.9, adult
CPT/HCPCS: 99281